=== PATIENT | male | born 1955 ===

== ENCOUNTER 2016-10-20 03:35 | Inpatient (IN) | payer MEDICARE, OTHER ==
--- NOTE | ~2016-10-20 | CT4 ---
[facility] A Service of [facility] RADIOLOGY TEXT RESULTS PATIENT: DIANNE ROMERO LOCATION: [facility] : 54 UNIT #: [id number] AGE: [address]: BENJIE HOGAN APRN SEX: M ORDER DR: [id number] [address] [address] [id number] P MR#: [id number] Acc #: [id number] NAME: DIANNE ROMERO : 1955 SEX: M STUDY DATE/TIME: 10/20/2016 4:30 UNIT: [facility] ROOM: STUDY DESCRIPTION: CT Abd and Pelv Wo Cont Attending Physician: Benjie Hogan Aprn Ordering Physician: Benjie Hogan Aprn MEDICAL IMAGING REPORT This report is preliminary unless electronic signature is present EXAM CT abdomen and pelvis INDICATIONS Abdominal pain. Altered mental status. Back pain/flank pain. TECHNIQUE CT of the abdomen and pelvis without contrast. Coronal and sagittal reconstructions were obtained. This CT exam was performed with one or more of the following radiation dose reduction techniques: automatic exposure control, adjustment of mA and/or kV according to patient size, and iterative reconstruction. COMPARISON None available. FINDINGS ABDOMEN: No urinary calculi. No hydronephrosis. Noncontrast evaluation of the solid abdominal organs are within normal limits. Gallbladder is not distended. The bowel is not dilated. The appendix is normal. There are some colonic diverticula. No diverticulitis. The abdominal aorta is normal in caliber. PELVIS: No pelvic mass. The bladder is unremarkable. No enlarged pelvic or inguinal lymph nodes. No acute osseous abnormalities. IMPRESSION No acute findings in the abdomen or pelvis. [facility] A Service of [facility] RADIOLOGY TEXT RESULTS PATIENT: DIANNE ROMERO LOCATION: [facility] : 54 UNIT #: [id number] AGE: [address]: BENJIE HOGAN APRN SEX: M ORDER DR: Dictated by... Jadon Tyson M.D. THIS IS AN ELECTRONICALLY VERIFIED REPORT Jadon Tyson M.D. at 10/20/2016 5:18 AM Nohemi TD: 10/20/2016 05:03 JOB #: [id number] MEDICAL IMAGING REPORT Page 1 of 1 COPY
--- NOTE | ~2016-10-20 | CR72 ---
[facility] A Service of [facility] RADIOLOGY TEXT RESULTS PATIENT: DIANNE ROMERO LOCATION: [facility] : 53 UNIT #: [id number] AGE: [address]: Katherine Negrete MD SEX: M ORDER DR: [id number] [facility] [address] [facility]. [place], [place] [address] [id number] I MR#: [id number] Acc #: [id number] NAME: DIANNE ROMERO : 1955 SEX: M STUDY DATE/TIME: 10/20/2016 9:32 UNIT: [facility] ROOM: 45912 STUDY DESCRIPTION: CR Chest Single View Portable Attending Physician: Katherine Negrete M.D. Ordering Physician: Benjie Hogan Aprn Primary Care Physician: Primary Care Physician No MEDICAL IMAGING REPORT This report is preliminary unless electronic signature is present EXAM Portable chest HISTORY Check endotracheal tube and central line. COMPARISON 10/20/2016 earlier in the day. TECHNIQUE Single AP view of the chest was obtained. FINDINGS A right jugular line and endotracheal tube both appear in good position. Consolidation is seen in the right upper lung field and there is also increased infiltrate at the left base. Some of this may be due to a shallower inspiratory effort since the previous examination. The possibility of new infiltrates since the previous examination should be considered. This location would be consistent with aspiration. IMPRESSION Tubes and supporting devices are in satisfactory position. New infiltrates are seen right upper lung field and left lung base. Possible aspiration. STAT * RESULT Dictated by... Carlos Trujillo M.D. THIS IS AN ELECTRONICALLY VERIFIED REPORT Carlos Trujillo M.D. at 10/20/2016 4:08 PM ANASTASIIAF/janene [facility] A Service of [facility] RADIOLOGY TEXT RESULTS PATIENT: DIANNE ROMERO LOCATION: [facility] : 53 UNIT #: [id number] AGE: [address]: Katherine Negrete MD SEX: M ORDER DR: TD: 10/20/2016 09:57 JOB #: [id number] MEDICAL IMAGING REPORT Page 1 of 1 COPY
--- NOTE | ~2016-10-20 | OR ---
Unit #: [id number] #: [id number] Patient: DIANNE ROMERO [id number] [address] [address] [id number] I MR#: [id number] NAME: DIANNE ROMERO ROOM: 78483 Date of Procedure: 10/20/2016 Admission Date: 10/20/2016 Surgeon: Joan Chappell M.D. : 1955 Attending Physician: Katherine Negrete M.D. Primary Care Physician: Olga Primary Care Physician PROCEDURE OPERATIVE NOTE PREOPERATIVE DIAGNOSIS Respiratory failure and shock. POSTOPERATIVE DIAGNOSIS PROCEDURE PERFORMED Right internal jugular essential venous catheter placement with ultrasound guidance. PERFORMING PHYSICIAN Joan Chappell M.D. WASTE TREATMENT OPERATOR Ara, Nurse practitioner COMPLICATIONS None. INDICATIONS FOR PROCEDURE Shock. DESCRIPTION OF PROCEDURE An informed consent was waved as there was no family and the patient was in severe shock. The patient was prepped and positioned in a proper way. Then, his right neck was cleaned with chlorhexidine. Then with the ultrasound guidance a needle was inserted after applying the body drape. Blood flow as obtained with no problem and then a guidewire was inserted inside the needle and the needle was removed. Then a dilator was used to create the track for the catheter and then the catheter was inserted over the guide wire using Seldinger technique. The line was flushed appropriately and Biopatch and clean dressing were applied. The patient tolerated his procedure well with no immediate complication. Stat chest x-ray is pending, confirming placement. Unit #: [id number] #: [id number] Patient: DIANNE ROMERO Dictated by... Joan Chappell M.D. EA/serena TD: 10/20/2016 10:14 JOB #: [id number] PROCEDURE OPERATIVE NOTE Page 1 of 1 X JOAN BARROW MD PROCEDURE OPERATIVE NOTE
--- NOTE | ~2016-10-20 | DS ---
Unit #: [id number] #: [id number] Patient: DIANNE ROMERO [id number] [address] [address] [id number] I MR#: [id number] NAME: DIANNE ROMERO ROOM: 338 Age: 61 Sex: M Admission Date: 10/20/2016 : 1955 Discharge Date: 10/27/2016 Attending Physician: Rose Hyde M.D. Primary Care Physician: No Primary Care Physician DISCHARGE SUMMARY PRINCIPAL DIAGNOSES 1. Shock both septic and hypovolemic, now resolved. 2. Acute respiratory failure secondary to #3. 3. Right-sided aspiration pneumonia with Escherichia coli and Klebsiella pneumoniae. 4. Acute kidney injury secondary to acute tubular necrosis plus or minus nonsteroidal anti-inflammatory drugs, status post hemodialysis, which is currently resolving. 5. Emerado toxicity, status post hemodialysis. 6. Mild rhabdomyolysis. 7. Polysubstance overdose including amphetamines, opiates and tricyclic antidepressants. 8. Severe metabolic acidosis, now resolved. 9. Hypokalemia. 10. Moderate protein malnutrition. 11. Bipolar disorder. 12. Atypical chest pain. 13. Toxic metabolic encephalopathy with concerns for underlying memory loss. 14. Dilated ascending aorta. 15. Benign prostatic hypertrophy. CONSULTANTS Dr. Chappell, pulmonology and Dr. Hernandez, nephrology. PROCEDURES 1. 2-Dimensional echocardiogram on 10/20/2016 with ejection fraction of 55% to 60%. No valvular abnormalities noted. 2. Chest x-ray on 10/20/2016 with nodular densities in the right superior hilum. 3. CT of the head without contrast on 10/20/2016, which was normal. 4. CT scan of the abdomen and pelvis without contrast on 10/20/2016 with no acute findings. 5. Chest x-ray later on 10/20/2016 following right jugular line and there is new infiltrates in the right upper and lower lobes. 6. Bilateral renal ultrasound on 10/20/2016, which was normal. 7. CT of the chest without contrast on 10/21/2016, with dilatation to ascending aorta measuring 5 cm in dimension, extensive infiltrates in the right upper lobe and bilateral lower lobes noted. No pulmonary nodule. CLINICAL HISTORY AND HOSPITAL COURSE Mr. Romero is a 61-year-old male brought to the emergency department by some friends after he was found unresponsive at home. Patient in the ER Unit #: [id number] #: [id number] Patient: DIANNE ROMERO was complaining about abdominal pain and CT scan was done, which was negative. He received Narcan in the emergency department and became more responsive; however, he was found to be significantly hypotensive, became increasingly hypoxic and was subsequently intubated and admitted to the ICU. In regards to the patient's respiratory failure, Dr. Chappell was consulted. The patient is maintained on ventilatory support and chest x-ray revealed pneumonia that appeared to be aspiration in origin. He was placed on appropriate antibiotics. Sputum cultures ultimately grew E. coli and Klebsiella. Fortunately with supportive care, the patient's respiratory status improved and actually patient self extubated. Fortunately he did not require reintubation. His hypoxia is now completely resolved and with complete antibiotics as outlined below. All associated fever, leukocytosis and sepsis has resolved. As noted above, the patient was hypotensive, which was unresponsive to IV hydration. Upon presentation he did require pressor therapy for approximately 48 hours. I suspect his hypotension was both septic in origin and probably mediation induced due to the medications he took as well. This has resolved. Upon presentation, the patient was also found to have a significantly elevated creatinine of 8.5. He was also lithium toxic and required emergent hemodialysis under the supervision of Dr. Hernandez. Emerado has been discontinued and Emerado toxicity has resolved. Patient did require hemodialysis on several occasional but fortunately he has begun to have spontaneous resolution of his acute kidney injury. He is having significant diuresis and on the day of discharge creatinine is now down to 2.8 and dropping about 1.5 points daily. This can be followed up as an outpatient. Patient also had significant hypokalemia due to his diuresis and we will replace this as an outpatient. Patient's urine drug screen upon presentation was abnormal and I suspect given his mental status, this ultimately was the result of a polysubstance overdose. Patient denies this. Patient today is otherwise clinically stable. He is eating and up walking around with physical therapy. He is complaining about some atypical chest pain that has been present for three days, of which he has not complained prior to today. I am awaiting a stat EKG and Troponin. Chest x-ray was unremarkable. If these two are negative I think he can be discharged home. DISCHARGE CONDITION Stable. DISCHARGE STATUS Discharge to home. DISCHARGE MEDICATIONS 1. Ventolin inhaler one puff every 4 hours p.r.n. for shortness of breath. 2. Combivent nebulizer treatments, 3 mL every 6 hours p.r.n. for shortness of breath. 3. Flomax 0.4 mg at bedtime. 4. Remeron unknown dose, 1 tablet at bedtime. Unit #: [id number] #: [id number] Patient: DIANNE ROMERO 5. Norvasc 10 mg daily. 6. Omnicef 300 mg p.o. b.i.d. for another five days. 7. Tessalon Perles 200 mg p.o. t.i.d. p.r.n. for cough. 8. BuSpar 10 mg p.o. t.i.d. 9. Labetalol 100 mg 1/2 tablet b.i.d. 10. KCL 20 mEq 2 tablets p.o. daily for seven days. DISCHARGE INSTRUCTIONS 1. The patient was instructed to follow a regular diet. 2. He is to refrain from any tobacco or illicit drug use or alcohol use. 3. He can increase activity as tolerated. 4. No NSAIDs over the counter. FOLLOWUP Patient will have a followup BMP done in one week. He should followup in transition clinic in one week. As noted, I have stopped multiple medications on this patient including his lithium. This should be reinitiated, when renal function has normalized, by his primary psychiatrist. Time spent on discharge today 43 minutes. Dictated by... Rose Hyde M.D. TRUONG/serena TD: 10/31/2016 09:55 JOB #: [id number] DISCHARGE SUMMARY Page 1 of 1 X Rose Hyde MD DISCHARGE SUMMARY
--- NOTE | ~2016-10-20 | CT71 ---
[facility] A Service [facility] RADIOLOGY TEXT RESULTS PATIENT: DIANNE ROMERO LOCATION: [facility]20 : 53 UNIT #: [id number] AGE: [address]: Katherine Negrete MD SEX: M ORDER DR: [id number] [place] [id number] [facility]. [place], [place] [address] [id number] MR#: [id number] Acc #: [id number] NAME: DIANNE ROMERO : 1955 SEX: M STUDY DATE/TIME: 10/20/2016 4:25 UNIT: [facility] ROOM: STUDY DESCRIPTION: CT Head Wo Contrast Attending Physician: Benjie Hogan Aprn Ordering Physician: Benjie Hogan Aprn Primary Care Physician: Primary Care Physician No MEDICAL IMAGING REPORT This report is preliminary unless electronic signature is present EXAM CT head INDICATION Altered mental status. Overdose. Headache and dizziness. Generalized weakness. TECHNIQUE CT of the head without contrast. This CT examination was performed with one or more of the following radiation dose reduction techniques: automatic exposure control, adjustment of mA and/or kV according to patient size, and iterative reconstruction. COMPARISON CT head 01/03/2006. FINDINGS Axial noncontrast images were obtained from the skull base to the vertex. Ventricular size and configuration are normal. There is no evidence of acute infarct or hemorrhage. There are no extra-axial fluid collections. No mass lesion or mass effect is seen. There are no skull fractures. IMPRESSION Normal noncontrast head CT. Dictated by... Jadon Tyson M.D. THIS IS AN ELECTRONICALLY VERIFIED REPORT Jadon Tyson M.D. at 10/21/2016 12:48 AM EUGENE/arian [facility] A Service [facility] RADIOLOGY TEXT RESULTS PATIENT: DIANNE ROMERO LOCATION: [facility] C[facility]3-20 : 53 UNIT #: [id number] AGE: [address]: Katherine Negrete MD SEX: M ORDER DR: TD: 10/20/2016 05:56 JOB #: [id number] MEDICAL IMAGING REPORT Page 1 of 1 COPY
--- NOTE | ~2016-10-20 | OR ---
Unit #: [id number] #: [id number] Patient: DIANNE ROMERO [id number] [address] [address] [id number] I MR#: [id number] NAME: DIANNE ROMERO ROOM: 55460 Date of Procedure: 10/20/2016 Admission Date: 10/20/2016 Surgeon: Joan Chappell M.D. : 1955 Attending Physician: Katherine Negrete M.D. Primary Care Physician: Olga Primary Care Physician PROCEDURE OPERATIVE NOTE INDICATION FOR PROCEDURE Respiratory failure and shock. PROCEDURE PERFORMED Direct laryngoscope intubation. ANESTHESIA Etomidate 20 mg IV times 1, Vecuronium 10 mg IV times 1. COMPLICATIONS None. GEOTECHNICAL FIELD TECHNICIAN Arnaldo, Nurse practitioner. PROCEDURE The patient was prepped and positioned in the appropriate way. Then he was preoxygenated with nonrebreather, then Ambu bag. The patient was premedicated with Vecuronium and etomidate. Then with the laryngoscope MAC size 4 an ET tube size 8 was inserted past the vocal cords with no complication. A view grade 3 was obtained during the procedure. ET tube placement was confirmed with good bilateral breath sounds and good CO2 color change. STAT chest x-ray is pending, confirming placement. Dictated by... Joan Chappell M.D. EA/ace TD: 10/20/2016 10:07 JOB #: [id number] PROCEDURE OPERATIVE NOTE Page 1 of 1 X JOAN BARROW MD X PROCEDURE OPERATIVE NOTE
--- NOTE | ~2016-10-20 | CR72 ---
[facility] A Service of [facility] RADIOLOGY TEXT RESULTS PATIENT: DIANNE ROMERO LOCATION: [address] : 53 UNIT #: [id number] AGE: [address]: Katherine Negrete MD SEX: M ORDER DR: [id number] [facility] [address] [facility]. [place], [place] [address] [id number] I MR#: [id number] #: [id number] NAME: DIANNE ROMERO : 1955 SEX: M STUDY DATE/TIME: 10/20/2016 12:25 UNIT: [facility] ROOM: [facility] STUDY DESCRIPTION: CR Chest Single View Portable Attending Physician: Katherine Negrete M.D. Ordering Physician: Ed Shubham Coelho M.D. Primary Care Physician: No Primary Care Physician MEDICAL IMAGING REPORT This report is preliminary unless electronic signature is present EXAM Portable chest radiograph INDICATION Shiley placement today. FINDINGS Left internal jugular vein nontunneled dialysis catheter extends into the superior vena cava. No obvious pneumothorax is seen. Patient has a right internal jugular vein central venous line which extends into the superior vena cava. Endotracheal tube is present which terminates above the level of the power. Cardiomegaly is present. Patchy infiltrates are noted throughout the right lung probably not significantly changed when compared to the earlier study. There is also some left basilar atelectasis. Dictated by... Evelia Zepeda M.D. THIS IS AN ELECTRONICALLY VERIFIED REPORT Evelia Zepeda M.D. at 10/20/2016 4:55 PM AFF/aa TD: 10/20/2016 14:35 JOB #: [id number] MEDICAL IMAGING REPORT Page 1 of 1 COPY
--- NOTE | ~2016-10-20 | A ---
[facility] Nutrition Therapy DATE: 10/21/16 Patient: DIANNE ROMERO Physician: ISAMAR Address: [facility] Room/Bed: [address], Zip: [place] [address] Admit Date: 10/20/16 Date of : 53 Height: 5 10 Weight: 188 85.5 NUTRITIONAL ASSESSMENT: REASON: NPO STATUS IN ICU 61 yo male admitted after being found down, acute respiratory failure, sepsis, aspiration PNA PMH: CHF, HTN, abdominal aortic aneurysm, GERD, bipolar disorder Anthropometrics: Ht: 5'10" Adm wt: 84 kg BMI: 26.6 Labs: Cl- 97 Gluc 174 BUN 38 Creat 5.2 Ca++ 6.6 Alb 3.2 GFR 10.9 Meds: Levophed, fentanyl, sodium bicarbonate, D5%, protonix, versed, NaCl I/O & Bowel function: 4602/1596, last BM 10/20, NG to LWS (1000 mL output x 24 hrs) Skin Integrity: Scar to low back/ hip Edema: none noted Estimated Nutrition Needs: 4238-6058 kcals (25-30 kcals/kg) 84-109 grams protein (1.0-1.3 grams/kg) Diet: NPO status Assessment: Chart reviewed, events noted. 61 yo male admitted after being found down after OD with noted respiratory failure, sepsis, metabolic and respiratory acidosis, BACILIO and aspiration PNA. Pt is intubated and sedated in ICU. Pt received stat HD yesterday per RN report. PMH and nutritionally significant labs noted above. Pt has an NG to LWS at this time. No family in room to provide nutritional history. Please see recommendations below. Dx: Inadequate protein-energy intake RT clinical condition, ventilator dependence AEB NPO status. Intervention: 1. Enteral nutrition Monitoring, Evaluation and Goals: 1. Enteral nutrition; initiate once medically feasible, provide >80% goal volume x 24 hrs 2. Improve labs; electrolytes, BUN, creat, GFR 3. GI; promote regular GI function [facility] Nutrition Therapy DATE: 10/21/16 Patient: DIANNE ROMERO Physician: ISAMAR Address: [facility] Room/Bed: [address], Zip: [place] [address] Admit Date: 10/20/16 Date of : 53 Height: 5 10 Weight: 188 85.5 Recommendations: 1. Once medically feasible when the pt is hemodynamically stable, recommend initiating enteral nutrition with Jevity 1.5 @ 20 mL/hr. Increase by 10 mL q 6 hrs as tolerated to goal of 60 mL/hr. This would provide: 2160 kcals/ 92 grams protein/ 1094 mL free H20 2. If the pt presents with significant electrolytes abnormalities, consider using Nepro renal formula instead of Jevity 1.5. If ordered by MD, start Nepro @ 20 mL/hr and increase by 10 mL q 6 hrs as tolerated to goal of 50 mL/hr. This would provide: 2160 kcals/ 97 grams protein/ 876 mL free H20 3. If the pt is extubated, recommend ACADEMIC ADMINISTRATOR evaluation. Advance diet per ACADEMIC ADMINISTRATOR recommendations + heart healthy diet restriction. Pt is at moderate-severe nutritional risk. RD will follow hospital course per protocol. Respectfully, ALENA MCGARRY RD, LD Food and Nutritional Services [facility] cc: client file
--- NOTE | ~2016-10-20 | EKG ---
PATIENT: DIANNE ROMERO UNIT #: [id number] Ventricular Rate: 66 BPM Atrial Rate: 66 BPM P-R Interval: 190 ms QRS Duration: 92 ms Q-T Interval: 444 ms QTC Calculation(Bezet): 465 ms P Orient: 50 degrees Calculated R Orient: 13 degrees Calculated T Orient: 53 degrees Diagnosis Line: Normal sinus rhythm Diagnosis Line: Cannot rule out Anterior infarct , age Diagnosis Line: undetermined Diagnosis Line: Abnormal ECG Diagnosis Line: No previous ECGs available Diagnosis Line: Confirmed by DARINEL MUNOZ MD ([id number]) on Diagnosis Line: 10/21/2016 7:58:26 AM INTERPRETING MD: TAMMY GEORGE
--- NOTE | ~2016-10-20 | EKG ---
PATIENT: DIANNE ROMERO UNIT #: [id number] Ventricular Rate: 70 BPM Atrial Rate: 70 BPM P-R Interval: 174 ms QRS Duration: 90 ms Q-T Interval: 422 ms QTC Calculation(Bezet): 455 ms P [place]: 46 degrees Calculated R [place]: -31 degrees Calculated T [place]: 34 degrees Diagnosis Line: Sinus rhythm with Premature atrial complexes Diagnosis Line: Left axis deviation Diagnosis Line: Abnormal ECG Diagnosis Line: When compared with ECG of 20-OCT-2016 07:56, Diagnosis Line: Premature atrial complexes are now Present Diagnosis Line: Confirmed by DARINEL MUNOZ MD ([id number]) on Diagnosis Line: 10/28/2016 9:03:16 AM INTERPRETING MD: TAMMY GEORGE
--- NOTE | ~2016-10-20 | HP ---
Unit #: [id number] #: [id number] Patient: DIANNE ROMERO [id number] [address] [address] [id number] I MR#: [id number] NAME: DIANNE ROMERO ROOM: 52616 Age: 61 Sex: M Admission Date: 10/20/2016 : 1955 Attending Physician: Katherine Negrete M.D. Primary Care Physician: No Primary Care Physician HISTORY AND PHYSICAL CHIEF COMPLAINT Drug overdose and unresponsiveness. HISTORY OF PRESENT ILLNESS The patient is a 61 year old admitted because he was found down in a car by a friend. Patient currently intubated and sedated. No family is reachable. No phone number available. Also, ER sheet is not available for me right now. Most of the history is taken from nurses' sheets. According to the history, the patient was brought after he was found down in a car by a friend. Very limited history. The patient was complaining of abdominal pain, so CT of the abdomen was done, which is negative. Also, the patient received Narcan x2, and he became responsive. Also, the patient was hypotensive. Three liters of fluids given. Also, later, the patient went hypoxic and was intubated. Currently the patient is intubated. PAST MEDICAL HISTORY 1. History of congestive heart failure, ejection fraction unknown. Likely chronic diastolic heart failure. 2. Hypertension. 3. Abdominal aortic aneurysm. 4. GERD. 5. Bipolar. PAST SURGICAL HISTORY Shoulder and back surgery. ALLERGIES None. SOCIAL HISTORY Unobtainable because the patient is intubated and sedated. FAMILY HISTORY Unobtainable because the patient is intubated. REVIEW OF SYSTEMS Unobtainable because the patient is intubated. HOME MEDICATIONS Unavailable because the patient is intubated and no family available. PHYSICAL EXAMINATION GENERAL EXAMINATION: This is a 61 year old lying in the bed, intubated, Unit #: [id number] #: [id number] Patient: DIANNE ROMERO sedated. VITAL SIGNS: Temperature 97.9, pulse 68, respirations 34, blood pressure 57/32. HEENT: This is a 61 year old with dry mucosa. Pupils are equal and reactive to light and accommodation. NECK: Supple. HEART: S1, S2 heard. Regular rhythm. Tachycardic. RESPIRATORY: Lungs are clear to auscultation. Occasional rhonchi present. ABDOMEN: Soft, nontender. Bowel sounds are present. EXTREMITIES: No pedal edema. SKIN: No IV needle santos seen in his antecubital area. NEUROLOGIC: Currently the patient is intubated and sedated. DIAGNOSTIC STUDIES LAB DATA: Glucose 96. WBC 12.4, hemoglobin 12.2, platelets 256. Lactic acid 1.3. Sodium 133, potassium 4.2, creatinine 8.5, AST 53, ALT 38, alkaline phosphatase 60, total bilirubin 1.9, albumin 3.9. CK 1,411. ABG - pH 7.11, carbon dioxide 35, oxygen 85. Urinalysis shows trace leukocyte esterase, no bacteria. Urine drug screen positive for amphetamines, opiates and TCA. Acetaminophen level less than 10, salicylate less than 4. Procalcitonin 0.49. Troponin 0.06. IMAGING: CT of the abdomen and pelvis shows no acute findings. CT of the head normal. Chest x-ray shows nodular densities superior right hilar region. May represent pneumonia. CARDIOVASCULAR: EKG shows sinus rhythm. ASSESSMENT AND PLAN A 61 year old admitted because of unresponsiveness. 1. Acute hypoxic respiratory failure. Currently intubated and sedated. Monitor in ICU. 2. Septic shock versus hypovolemic shock with likely aspiration pneumonia. Patient was started on IV Zosyn. IV fluids, 3 liter bolus, have been given. Continue with the 4th liter. Lactic acid has been done. Blood cultures sent. Also hypotension could be secondary to drug overdose. 3. Acute kidney injury with severe metabolic acidosis with acute rhabdomyolysis. Patient was seen by Dr. Hernandez. He is going to do a STAT dialysis. 4. Aspiration pneumonia, likely. The patient was started on IV antibiotics as per pulmonary. 5. Acute rhabdomyolysis. Continue with IV fluids. 6. Bipolar, on lithium. I am going to do a STAT lithium level. Patient is going for dialysis now. 7. Could not reach family. No phone number. link trainer maintenance worker to help with finding family phone number. 8. The patient is critically ill. Trying to reach family. NOTE: Critical care time taken is 32 minutes. Dictated by Unit #: [id number] #: [id number] Patient: DIANNE ROMERO M.D. KJ/db TD: 10/20/2016 11:52 JOB #: [id number] HISTORY AND PHYSICAL Page 1 of 1 X Katherine Negrete MD HISTORY AND PHYSICAL
--- NOTE | ~2016-10-20 | EKG ---
PATIENT: DIANNE ROMERO UNIT #: [id number] Ventricular Rate: 71 BPM Atrial Rate: 71 BPM P-R Interval: 194 ms QRS Duration: 94 ms Q-T Interval: 450 ms QTC Calculation(Bezet): 489 ms P Ramsay: 42 degrees Calculated R Ramsay: 2 degrees Calculated T Ramsay: 46 degrees Diagnosis Line: Normal sinus rhythm Diagnosis Line: Prolonged QT Diagnosis Line: Abnormal ECG Diagnosis Line: When compared with ECG of 20-OCT-2016 03:53, Diagnosis Line: (unconfirmed) Diagnosis Line: No significant change was found Diagnosis Line: Confirmed by DARINEL MUNOZ MD ([id number]) on Diagnosis Line: 10/21/2016 7:58:55 AM INTERPRETING MD: TAMMY GEORGE
--- NOTE | ~2016-10-20 | CO ---
Unit #: [id number] #: [id number] Patient: DIANNE ROMERO [id number] [address] [address] [id number] I MR#: [id number] NAME: DIANNE ROMERO ROOM: 77095 Age: 61 Sex: M Admission Date: 10/20/2016 : 1955 Attending Physician: Katherine Negrete M.D. Primary Care Physician: No Primary Care Physician Consultation Date: 10/20/2016 CONSULTATION REPORT REASON FOR CONSULT ICU management. HISTORY OF PRESENT ILLNESS This is a 61-year-old male with past medical history significant for congestive heart failure, hypertension, GERD, bipolar disorder, AAA, who presented to the emergency room after he was found down in his car by a friend. The history is very limited as there is no family or friends at bedside and all information was obtained from the nurses and from the ER report. In the ER MD sheets, there is report of abdominal pain, dehydration, balance loss, and falling for one to two days. However, from the nursing report the patient was found down in his car with drug overdose of unclear medication. Currently, patient is hypoxic, unresponsive, hypotensive with systolic blood pressure in the 70s. His blood gas showing metabolic acidosis with no proper respiratory compensation. We are in the process of intubating and proceeding with central line placement. PAST MEDICAL HISTORY 1. Congestive heart failure. 2. Hypertension. 3. AAA. 4. GERD. 5. Bipolar disorder. PAST SURGICAL HISTORY Shoulder and back surgery. ALLERGIES No known drug allergies. SOCIAL HISTORY Unable to obtain from the patient. FAMILY HISTORY Unable to obtain. REVIEW OF SYSTEMS Unable to obtain. HOME MEDICATIONS Unable to obtain. PHYSICAL EXAMINATION Unit #: [id number] #: [id number] Patient: DIANNE ROMERO GENERAL: The patient is ill appearing. VITAL SIGNS: Blood pressure is 71/42, respiratory rate 12, O2 saturation 96% on nonrebreather. HEENT: Atraumatic, normocephalic. PERRLA. EOMI. NECK: Supple. No JVD. No lymphadenopathy. CHEST: Fine rhonchi at the bases. HEART: S1, S2. No murmur, gallops, or rubs. ABDOMEN: Soft, nontender. Bowel sounds are positive. No hepatosplenomegaly. EXTREMITIES: No edema or cyanosis. SKIN: No rashes. CENTRAL NERVOUS SYSTEM: Obtunded and lethargic. He is moving all extremities. He wakes up for painful stimuli but he is incoherent. DIAGNOSTIC STUDIES LABORATORY: AB.//11. Sodium 133, creatinine 8.5. White blood count 12.4, hemoglobin 12.2. ASSESSMENT 1. Acute hypoxic respiratory failure. 2. Severe anion gap metabolic acidosis. 3. Acute renal failure. 4. Rhabdomyolysis. 5. Drug overdose. 6. Pulmonary nodule. 7. Shock, likely septic. 8. Rule out aspiration pneumonia. 9. Hyponatremia. PLAN 1. The patient is very ill appearing and he needs to be intubated at this point. 2. IV fluid per sepsis guideline and then bicarbonate drip due to rhabdomyolysis. 3. Pressors to keep his systolic more than 95. 4. Broad-spectrum antibiotics pending culture. 5. CT chest at some point to evaluate for pulmonary nodule and rule out other etiology. 6. Obtain urine drug screen and alcohol level. We need also to calculate osmolar gap to rule out methanol or ethylene glycol toxicity. 7. Patient may need to have hemodialysis for both renal failure and drug overdose; however, will re-assess soon after hydration and lab followup. 8. Deep venous thrombosis and gastrointestinal prophylaxis. Critical care time spent on this patient was 45 minutes. Dictated by... Jaja Peters TD: 10/20/2016 09:21 Unit #: [id number] #: [id number] Patient: DIANNE ROMERO JOB #: [id number] CONSULTATION REPORT Page 1 of 1 X JOAN BARROW MD CONSULTATION REPORT
--- NOTE | ~2016-10-20 | US77 ---
[facility] A Service of [facility] & [facility] RADIOLOGY TEXT RESULTS PATIENT: DIANNE ROMERO LOCATION: [address] : [birth year] UNIT #: [id number] AGE: [address]: Katherine Negrete MD SEX: M ORDER DR: [id number] [facility] [address] [facility]. [place], [place] [address] [id number] I MR#: [id number] Acc #: [id number] NAME: DIANNE ROMERO : 1955 SEX: M STUDY DATE/TIME: 10/20/2016 19:30 UNIT: [facility] ROOM: [facility] STUDY DESCRIPTION: US Kidney Bilateral Complete Attending Physician: Katherine Negrete M.D. Ordering Physician: Ed Shubham Coelho M.D. Primary Care Physician: Primary Care Physician No MEDICAL IMAGING REPORT This report is preliminary unless electronic signature is present EXAM Bilateral renal ultrasound HISTORY Renal failure. Elevated creatinine. FINDINGS Ultrasound examination of both kidneys demonstrates no hydronephrosis. No renal mass. No focal renal atrophy or perinephric fluid collection. Normal renal parenchymal echotexture. Both kidneys measure 11.8 cm in length. Urinary bladder was not visualized. IMPRESSION Normal ultrasound examination of both kidneys. Dictated by... Paul Londono M.D. THIS IS AN ELECTRONICALLY VERIFIED REPORT Paul Londono M.D. at 10/21/2016 11:23 PM DFL/psc TD: 10/20/2016 22:52 JOB #: [id number] MEDICAL IMAGING REPORT Page 1 of 1 COPY
--- NOTE | ~2016-10-20 | CR63 ---
[facility] A Service of [facility] & [facility] RADIOLOGY TEXT RESULTS PATIENT: DIANNE ROMERO LOCATION: [facility] 338-01 : [birth year] UNIT #: [id number] AGE: [address]: Rose Hyde MD SEX: M ORDER DR: [id number] [facility] [address] [facility]. [place], [place] [address] [id number] I MR#: [id number] Acc #: [id number] NAME: DIANNE ROMERO : 1955 SEX: M STUDY DATE/TIME: 10/27/2016 9:10 UNIT: [address] ROOM: [facility] STUDY DESCRIPTION: CR Chest 2 View Attending Physician: Rose Hyde M.D. Ordering Physician: Angelika Chappell M.D. Primary Care Physician: Primary Care Physician No MEDICAL IMAGING REPORT This report is preliminary unless electronic signature is present EXAM PA and lateral chest INDICATIONS Shortness of breath, pneumonia and cough for 5 days. COMPARISON 10/20/2016 FINDINGS Mild interstitial pattern. Heart size stable. No airspace consolidation. Previously noted support lines and tubes have been removed. IMPRESSION Mild interstitial pattern. Dictated by... Ian Armstrong M.D. THIS IS AN ELECTRONICALLY VERIFIED REPORT Ian Armstrong M.D. at 10/27/2016 12:23 PM Jairo TD: 10/27/2016 09:56 JOB #: [id number] MEDICAL IMAGING REPORT Page 1 of 1 COPY
--- NOTE | ~2016-10-20 | OR ---
Unit #: [id number] #: [id number] Patient: DIANNE ROMERO [id number] [address] [address] [id number] I MR#: [id number] NAME: DIANNE ROMERO ROOM: [facility] Date of Procedure: 10/22/2016 Admission Date: 10/20/2016 Surgeon: Joan Chappell M.D. : 1955 Attending Physician: Rose Hyde M.D. Primary Care Physician: Olga Primary Care Physician PROCEDURE OPERATIVE NOTE PROCEDURE PERFORMED Right femoral hemodialysis catheter placement with ultrasound guidance. INDICATION FOR PROCEDURE Hemodialysis need. PREOPERATIVE DIAGNOSIS Respiratory failure and renal failure. COMPLICATIONS None. DESCRIPTION OF THE PROCEDURE An informed consent was obtained from the patient after explaining the benefit and risks of this procedure. The patient was prepped and positioned in the proper way and then his right groin was cleaned with chlorhexidine and then a body drape was applied and then, with the ultrasound guidance, a needle was inserted into the right femoral vein until blood flow was obtained and then a guidewire was inserted and the needle was removed. Then, a dilator was used to create a false tract for the catheter and then the catheter was inserted over the guidewire and the guidewire was removed. The catheter was sutured in place and flushed appropriately. A clean dressing was applied and no need for chest x-ray at this point. Dictated by... Joan Chappell M.D. EA/david TD: 10/23/2016 10:02 JOB #: [id number] Unit #: [id number] #: [id number] Patient: DIANNE ROMERO PROCEDURE OPERATIVE NOTE Page 1 of 1 X JOAN BARROW MD X PROCEDURE OPERATIVE NOTE
--- NOTE | ~2016-10-20 | CT57 ---
[facility] A Service of [facility] & [facility] RADIOLOGY TEXT RESULTS PATIENT: DIANNE ROMERO LOCATION: [address] : [birth year] UNIT #: [id number] AGE: [address]: Rose Hyde MD SEX: M ORDER DR: [id number] [facility] [address] [facility]. [place], [place] [address] [id number] I MR#: [id number] Acc #: [id number] NAME: DIANNE ROMERO : 1955 SEX: M STUDY DATE/TIME: 10/21/2016 21:20 [facility]: [facility] ROOM: [facility] STUDY DESCRIPTION: CT Chest Wo Cont Attending Physician: Rose Hyde M.D. Ordering Physician: Katherine Negrete M.D. Primary Care Physician: Primary Care Physician No MEDICAL IMAGING REPORT This report is preliminary unless electronic signature is present EXAM CT scan of the chest without contrast INDICATION Pulmonary nodule right upper lobe seen on chest x-ray done 10/20/2016. Patient is unable to hold breath. He is on a ventilator. He cannot raise his arms above his head. TECHNIQUE Axial 2 mm images were obtained through the chest without contrast. This CT examination was performed with one or more of the following radiation dose reduction techniques: automatic exposure control, adjustment of mA and/or kV according to patient size, and iterative reconstruction. FINDINGS There are central venous catheters present with their tips in the superior vena cava. There are actually 2 with one on the left and one on the right side. The ascending aorta is about 5 cm in maximum AP or transverse dimension. There is a calcified granuloma in the right lower lobe. There are patchy dense infiltrates in the right upper lobe posteriorly and laterally and throughout the right lower lobe and also the left lower lobe. There is some patchy infiltrate in the lingula and right middle lobe. No discrete nodule is visible. The visualized portions of the upper abdomen are normal. The bones are unremarkable. IMPRESSION 1. The ascending aorta is enlarged up to 5 cm in transverse or AP dimension. 2. Extensive infiltrates particularly in the right upper lobe and both lower lobes with patchy infiltrates in the lingula and middle lobes. The presumed pneumonia appears denser on the athletic scout film today than it did on the chest x-ray yesterday. 3. No pulmonary nodule is visible but they could be obscured by the dense STS. [facility] A Service of [facility] & [facility] RADIOLOGY TEXT RESULTS PATIENT: DIANNE ROMERO LOCATION: [place] [address]- : [birth year] UNIT #: [id number] AGE: [address]: Rose Hyde MD SEX: M ORDER DR: infiltrates. Dictated by... Marky Green M.D. THIS IS AN ELECTRONICALLY VERIFIED REPORT Marky Green M.D. at 10/22/2016 8:21 PM SUBHA/arian TD: 10/22/2016 13:06 JOB #: [id number] MEDICAL IMAGING REPORT Page 1 of 1 COPY
--- NOTE | ~2016-10-20 | CR72 ---
[facility] A Service of [facility] & [facility] RADIOLOGY TEXT RESULTS PATIENT: DIANNE ROMERO LOCATION: [facility] CICCU3-20 : 53 UNIT #: [id number] AGE: [address]: Katherine Negrete MD SEX: M ORDER DR: [id number] [facility] [address] [facility]. [place], [place] [address] [id number] E MR#: [id number] Acc #: [id number] NAME: DIANNE ROMERO : 1955 SEX: M STUDY DATE/TIME: 10/20/2016 4:04 UNIT: [facility] ROOM: STUDY DESCRIPTION: CR Chest Single View Portable Attending Physician: Benjie Hogan Aprn Ordering Physician: Benjie Hogan Aprn Primary Care Physician: Primary Care Physician No MEDICAL IMAGING REPORT This report is preliminary unless electronic signature is present EXAM Single view chest INDICATION Wheezing. Shortness of air. FINDINGS Single portable AP view of the chest compared to 01/09/2009. Heart mediastinal contours are normal. There is a nodular density in the right upper lobe. This may represent an acute pneumonia. Followup radiographs are recommended to document resolution and exclude a pulmonary nodule. IMPRESSION Nodular densities in the superior right hilar region. Recommend followup radiographs to further evaluate. This may represent a pneumonia, however, pulmonary nodules are in the differential consideration. Dictated by... Jadon Tyson M.D. THIS IS AN ELECTRONICALLY VERIFIED REPORT Jadon Tyson M.D. at 10/21/2016 12:48 AM EUGENE/dulce TD: 10/20/2016 04:48 JOB #: [id number] MEDICAL IMAGING REPORT Page 1 of 1 COPY
--- NOTE | ~2016-10-20 | CO ---
Unit #: [id number] #: [id number] Patient: DIANNE ROMERO [id number] [address] [address] [id number] I MR#: [id number] NAME: DIANNE ROMERO ROOM: 82709 Age: 61 Sex: M Admission Date: 10/20/2016 : 1955 Attending Physician: Katherine Negrete M.D. Primary Care Physician: No Primary Care Physician Consultation Date: 10/20/2016 CONSULTATION REPORT REASON FOR CONSULTATION Renal failure. HISTORY Thank you very much for asking us to see this patient in consultation. Mr. Romero is a 61-year-old male who apparently was found down in the car by a friend and brought to the emergency room early this morning. The patient was noted to be hypotensive, had blood work done and showed a BUN and creatinine of 80 and 8.5. Because of this I was asked to see the patient. The patient also was noted to have mild increased CPK of 1411. He is unresponsive, intubated, no family members around and I do note even have a number to call anyone, so this is taken from just the best piecemeal that I can get. PAST MEDICAL HISTORY History of congestive heart failure, history if hypertension, history of gastroesophageal reflux disease, history of bipolar disorder, history of abdominal aortic aneurysm. MEDICATIONS His medicines according to a piece of paper from a [facility] discharge showed that he was diclofenac 50 mg a day; HCTZ 25 mg a day; labetalol 100 mg twice a day; Flomax 0.4 mg a day; Pravachol 40 mg a day; Norvasc 5 mg a day; Prilosec a day; BuSpar daily; lithium 450 mg twice a day; Neurontin 600 mg t.i.d.; Remeron daily; Lasix 20 mg a day. ALLERGIES Unknown. SOCIAL HISTORY Unknown. FAMILY HISTORY Unknown. REVIEW OF SYSTEMS Unknown. PHYSICAL EXAMINATION GENERAL: Again he has decreased response, intubated. He is on Levophed now and IV fluids consisting of bicarbonate 150 mL an hour and received about 3 L of normal saline bolus. VITAL SIGNS: His temperature is 97.9, pulse 68 to 78, blood pressure 57 to 111/30s to 60s. Currently his systolic blood pressure is around 100. Unit #: [id number] #: [id number] Patient: DIANNE ROMERO HEENT: His pupils are equal, round and reactive to light. He is orally intubated. NECK: Supple. No adenopathy. CARDIAC: He is without a rub. No S3 or S4. LUNGS: His lungs have a few bilateral rhonchi. ABDOMEN: Bowel sounds positive. Nontender, soft. EXTREMITIES: He has no lower extremity swelling. His pulses are intact in upper and lower extremities. SKIN: No acute rashes. NEUROLOGIC: Again decreased response. : Melara catheter is in place. Does have about 200 mL of urine in there currently. DIAGNOSTIC STUDIES LABORATORY DATA: UA shows specific gravity of 1.021, negative protein, 0-2 rbc's, 2-5 WBC, urine sodium 38. Hemoglobin 12.2, white count 12,400, platelets 256,000. Last ABG showed a pH 7.032, pCO2 of 38, pO2 of 225 on 100%. His sodium was 133, potassium 4.2, chloride 100, bicarb 14, anion gap calculated at 19. BUN of 80, creatinine 8.5 and glucose is 83. Calcium 7.8, CPK is 1411. Serum osmolarity is 313. Lactic acid is 1.3, negative aspirin, negative Tylenol. His drug screen showed positive amphetamines, positive opioids. Positive tricyclics. Negative cocaine. Negative for marijuana. Again negative Tylenol. Negative aspirin. IMAGING STUDIES: Chest x-ray showed infiltrates right and left side, upper lobe and left base. CT of the head was negative for acute pathology. Abdominal CT was negative for any acute pathology and no hydronephrosis. ASSESSMENT AND PLAN 1. Acute kidney injury: This is a gentleman with increased BUN and creatinine certainly multifactorial. It could be related to mild rhabdo, although I do not think that is the exact cause versus volume depletion, versus just hypotensive with decreased perfusion for possible sepsis, as well as he has been apparently on a nonsteroidal. All this combination causing his acute renal failure. I do not have a previous baseline creatinine on him at this time. Due to his severe acidosis, will plan on emergent hemodialysis today. He also apparently is on lithium, although apparently that was not noted until in the last hour. Will order a stat lithium level and suspect with his acute renal failure he is probably lithium toxic and potentially even lithium overdosed. Again will plan emergent hemodialysis anyway and certainly if his lithium level is elevated will have to follow serial lithium levels. He also has an elevated anion gap metabolic acidosis as we will mention below. 2. Acidosis: Patient with a combination of metabolic acidosis, as well as a respiratory acidosis and questionable possible mild metabolic alkalosis in looking at this numbers. He does have an increased anion gap at 19 and calculating his osmolar gap is 14, which is also elevated. Due to his severe acidosis and his osmolar gap, I will check a stat ethylene glycol level and methanol level as well, but again will start him on hemodialysis and if his ethylene glycol level is elevated, will consider medical management as well. For now check levels and start dialysis and will continue bicarb drip and will continue to follow. 3. Respiratory failure, pneumonia versus other. Unit #: [id number] #: [id number] Patient: DIANNE ROMERO 4. Bipolar disorder: Again check lithium level. 5. Possible sepsis. Thank you very much. Dictated by.Aman Hernandez M.D. EVA/serena TD: 10/20/2016 12:12 JOB #: [id number] CONSULTATION REPORT Page 1 of 1 X April Hernandez MD X CONSULTATION REPORT
--- NOTE | ~2016-10-20 | FU ---
[facility] Nutrition Therapy DATE: 10/25/16 Patient: DIANNE ROMERO Physician: ISAMAR Address: [address] [place] [address] ROAD Room/Bed: [address] [place] [address], Zip: [place] [address] Admit Date: 10/20/16 Date of : 53 Height: 5 10 Weight: 206 93.8 NUTRITION MONITORING/FOLLOW-UP: Reason: Follow up Anthropometrics: Wt: 86 kg (trending up since admission) Labs: K+ 3.3 Cl- 99 BUN 28 Creat 5.0 Ca++ 8.0 Alb 2.4 Meds: NaCl I&O's: 1260/1903, last BM 10/24 Skin: No changes noted Edema: none noted Diet: Regular Assessment: Chart reviewed, events noted. Since RD last saw the pt, he has been extubated and transfered to tele floor. Pt has been ordered a regular diet with thin liquids per [employer] evaluation. RD spoke with the pt at bedside. Per information obtained at rounds yesterday, the pt was consuming ~50% of meals. Pt reports having a poor appetite stating "Food just does not sound good". Pt denied having any n/v or abdominal pain. Pt unable to report exact amount of intake of meals, and would only reply "A little bit". RD stressed the importance of adequate nutritional intake, and the pt is agreeable to Ensure BID for supplemental nutrition. RD will order. Dx: Inadequate protein-energy intake RT ventilator dependence AEB NPO status- NO LONGER RELEVANT New Dx: Predicted suboptimal nutrient intake RT decreased appetite, clinical condition AEB pt reported poor appetite and intake. Intervention: 1. Heart healthy diet 2. Ensure BID Monitoring, Evaluation and Goals: 1. Enteral nutrition- NO LONGER RELEVANT (ADVANCED TO PO DIET) 2. Improve labs; glucose, electrolytes, BUN, creat- IMPROVED/ IN PROGRESS 3. GI; promote regular GI function- MET/ IN PROGRESS [facility] Nutrition Therapy DATE: 10/25/16 Patient: DIANNE ROMERO Physician: ISAMAR Address: [address] [place] [address] ROAD Room/Bed: [address] [place] [address], Zip: [place] [address] Admit Date: 10/20/16 Date of : 53 Height: 5 10 Weight: 206 93.8 NEW GOALS (IN ADDITION TO ABOVE): 1. Oral intake; tolerate >50-75% of meals and supplements Recommendations: 1. Add a heart healthy diet restriction d/t the pt's PMH. 2. Ensure BID for supplemental nutrition. 3. Appreciate staff encouraging adequate nutritional intake as needed. Status: Pt is at mild nutritional risk. RD will follow hospital course per protocol. Respectfully, ALENA MCGARRY RD, LD [facility] cc: client file
[2016-10-20 04:35] LABS: POC - CREATININE 5.04 mg/dL (0.64-1.27)
[2016-10-20 04:35] LABS: POC - CREATININE 5.55 mg/dL (0.64-1.27)
[2016-10-20 05:13] LABS: BASOPHIL# 0.1 X10e3 (0-0.3); BASOPHIL% 0.5 % (0-2.5); DIFF IND NO; EOSINOPHIL# 0.2 X10e3 (0-0.7); EOSINOPHIL% 1.9 % (0.0-7.0); HEMATOCRIT 39.2 % (38.0-50.0); HEMOGLOBIN 12.2 gm/dL (13.0-16.0); LYMPHOCYTE# 0.7 X10e3 (1.0-3.5); LYMPHOCYTE% 5.5 % (17.0-45.0); MEAN CELL VOLUME 92.7 FL (83-96); MEAN CORPUSCULAR HEMOGLOBIN 28.9 PG (28-34); MEAN CORPUSCULAR HGB CONC 31.2 g/dL (30-36); MEAN PLATELET VOLUME 7.5 FL (6.5-11.5); MONOCYTE# 1.1 X10e3 (0-1.0); MONOCYTE% 8.9 % (3.0-12.0); NEUTROPHIL# 10.4 X10e3 (1.5-7.1); NEUTROPHIL% 83.2 % (40-75); PLATELET COUNT 256 X10e3 (140-420); RED BLOOD COUNT 4.23 X10e (3.90-5.60); RED CELL DISTRIBUTION WIDTH 14.5 % (11.0-15.5); WHITE BLOOD COUNT 12.4 X10e3 (4.0-10.5)
[2016-10-20 05:14] LABS: POC - CKMB 17.4 ng/mL (0.0-7.9); POC - TROPONIN <0.05 ng/mL (<=0.05)
[2016-10-20 05:57] LABS: ALBUMIN SERUM 3.9 g/dL (3.5-5.0); BILIRUBIN, DIRECT 0.2 mg/dL (0.0-0.2); BILIRUBIN,INDIRECT 1.7 mg/dL (0.0-0.9); BILIRUBIN,TOTAL 1.9 mg/dL (0.2-2.0); BUN/CREATININE RATIO 9.41; CALCIUM SERUM 7.8 mg/dL (8.4-10.2); CREATININE SERUM 8.5 mg/dL (0.6-1.4); POTASSIUM 4.2 mmol/L (3.5-5.1); PROTEIN TOTAL SERUM 7.1 g/dL (6.0-8.3)
[2016-10-20] MEDS ORDERED: VOLTAREN50 MG PO (06:41)
[2016-10-20] MEDS ORDERED: HYDROCHLOROTHIA25 MG PO ×2 (06:42→13:40)
[2016-10-20] MEDS ORDERED: NORMODYNE100 MG PO (06:42)
[2016-10-20] MEDS ORDERED: FLOMAX0.4 M1 PO (06:43)
[2016-10-20] MEDS ORDERED: NORVASC10 MG PO (06:43)
[2016-10-20] MEDS ORDERED: PRINIVIL40 MG PO (06:43)
[2016-10-20] MEDS ORDERED: PRILOSEC PO (06:44)
[2016-10-20] MEDS ORDERED: IMDUR-ER30 M3 PO (06:44)
[2016-10-20] MEDS ORDERED: BUSPIRONE HCL10 MG PO ×2 (06:44→13:37)
[2016-10-20] MEDS ORDERED: ESKALITH-CR450 MG PO (06:45)
[2016-10-20] MEDS ORDERED: NEURONTIN600 MG PO (06:45)
[2016-10-20] MEDS ORDERED: COMBIVENT U/D3 M2 INH (06:46)
[2016-10-20] MEDS ORDERED: REMERON30 M1 PO (06:46)
[2016-10-20] MEDS ORDERED: CLONIDINE HCL0.1 MG PO (06:47)
[2016-10-20] MEDS ORDERED: LASIX20 MG PO (06:47)
[2016-10-20] MEDS ORDERED: BENTYL20 MG PO (06:48)
[2016-10-20] MEDS ORDERED: PHENERGAN25 MG PO (06:48)
[2016-10-20] MEDS ORDERED: ALBUTEROL17 GM INH (06:49)
[2016-10-20 08:23] LABS: ARTERIAL BLD GAS O2 SATURATION 92.3 % (90.0-100.0); ARTERIAL BLOOD GAS PCO2 34.6 mmHg (35.0-45.0); ARTERIAL BLOOD GAS PO2 85.9 mmHg (80.0-100)
[2016-10-20 08:26] LABS: ARTERIAL BLOOD GAS ALLEN TEST NORMAL; ARTERIAL BLOOD GAS ART SITE RIGHT RADIAL; ARTERIAL BLOOD GAS DELIVERY VENTI; ARTERIAL DRAW? YES
[2016-10-20 08:44] LABS: URINE APPEARANCE CLOUDY; URINE BILIRUBIN NEG (NEG); URINE BLOOD NEG (NEG); URINE COLOR DK YELLOW; URINE GLUCOSE NEG (NEG); URINE KETONE NEG (NEG); URINE LEUKOCYTE ESTERASE TRACE (NEG); URINE NITRATE NEG (NEG); URINE PROTEIN NEG (NEG); URINE SPECIFIC GRAVITY 1.021 (1.003-1.035); URINE UROBILINOGEN 0.2 MG/DL (NEG)
[2016-10-20 08:46] LABS: URBCS1 AUWI 0-2 /[HPF] (0-2); URINE BACTERIA AUWI NEG (NEGATIVE); URINE SQUAMOUS EPITHELIAL CELL OCC /[HPF]
[2016-10-20 09:01] LABS: INR 0.9; PARTIAL THROMBOPLASTIN TIME 24.7 SECONDS (23.5-31.3); PROTHROMBIN TIME (PATIENT) 10.3 SECONDS (10.0-11.7)
[2016-10-20 09:05] LABS: SALICYLATE <4.0 mg/dL
[2016-10-20 09:07] LABS: ACETAMINOPHEN <10 ug/mL
[2016-10-20 09:08] LABS: CULTURE INDICATED? NO
[2016-10-20 09:09] LABS: URINE MUCUS PRESENT
[2016-10-20 09:14] LABS: URINE SOURCE CATH
[2016-10-20 09:16] LABS: CREATININE,RANDOM URINE 244 mg/dL; SODIUM URINE RANDOM 38 mmol/L
[2016-10-20 09:54] LABS: AMPHETAMINE POS (NEG); BARBITURATES NEG (NEG); BENZODIAZEPINES NEG (NEG); COCAINE NEG (NEG); MARIJUANA NEG (NEG); OPIATES POS (NEG); TRICYCLIC ANTIDEPRESSANTS POS (NEG); U METHADONE NEG (NEG)
[2016-10-20 10:08] LABS: ARTERIAL BLD GAS O2 SATURATION 97.4 % (90.0-100.0); ARTERIAL BLOOD GAS CARBOXY HB 0.6 %sat (0.0-9.0); ARTERIAL BLOOD GAS HCO3 10.3 mmol/L; ARTERIAL BLOOD GAS MET HB 1.2 %sat (0.0-2.0); ARTERIAL BLOOD GAS PCO2 38.7 mmHg (35.0-45.0)
[2016-10-20 10:10] LABS: ARTERIAL BLOOD GAS pH 7.032 (7.350-7.450)
[2016-10-20 10:11] LABS: ARTERIAL BLOOD GAS ALLEN TEST NORMAL; ARTERIAL BLOOD GAS ART SITE RIGHT RADIAL; ARTERIAL BLOOD GAS VENT MODE A/C; ARTERIAL DRAW? YES
[2016-10-20 10:12] LABS: PROCALCITONIN 0.49 NG/ML
[2016-10-20] MEDS ORDERED: LABETALOL HCL100 MG PO (13:29)
[2016-10-20] MEDS ORDERED: LODINE400 M1 PO (13:31)
[2016-10-20] MEDS ORDERED: FLEXERIL10 MG PO (13:32)
[2016-10-20] MEDS ORDERED: ZESTRIL40 MG PO (13:33)
[2016-10-20] MEDS ORDERED: MIRTAZAPINE30 MG PO (13:34)
[2016-10-20] MEDS ORDERED: AMLODIPINE BESY10 MG PO (13:34)
[2016-10-20] MEDS ORDERED: IMDUR-ER30 M1 PO (13:35)
[2016-10-20] MEDS ORDERED: LITHIUM CARBON300 M1 PO (13:36)
[2016-10-20] MEDS ORDERED: BENZONATATE200 M1 PO (13:37)
[2016-10-20] MEDS ORDERED: OMEPRAZOLE20 M2 PO (13:38)
[2016-10-20] MEDS ORDERED: GABAPENTIN600 MG PO (13:40)
[2016-10-20 21:27] LABS: ARTERIAL BLD GAS O2 SATURATION 69.3 % (90.0-100.0); ARTERIAL BLOOD GAS HCO3 26.1 mmol/L; ARTERIAL BLOOD GAS MET HB 0.9 %sat (0.0-2.0); ARTERIAL BLOOD GAS PCO2 39.2 mmHg (35.0-45.0); ARTERIAL BLOOD GAS pH 7.432 (7.350-7.450)
[2016-10-20 21:29] LABS: ARTERIAL BLOOD GAS DELIVERY VENT; ARTERIAL BLOOD GAS PO2 34.8 mmHg (80.0-100); ARTERIAL BLOOD GAS VENT MODE AC; ARTERIAL DRAW? NO
[2016-10-20 22:32] LABS: BUN/CREATININE RATIO 7.82; CALCIUM SERUM 6.8 mg/dL (8.4-10.2); CREATININE SERUM 4.6 mg/dL (0.6-1.4); GLOM FILT RATE Estimated 12.7 mL/min (>60); POTASSIUM 3.1 mmol/L (3.5-5.1)
[2016-10-21 04:32] LABS: ARTERIAL BLD GAS O2 SATURATION 90.5 % (90.0-100.0); ARTERIAL BLOOD GAS CARBOXY HB 0.9 %sat (0.0-9.0); ARTERIAL BLOOD GAS HCO3 30.7 mmol/L; ARTERIAL BLOOD GAS MET HB 0.9 %sat (0.0-2.0); ARTERIAL BLOOD GAS pH 7.393 (7.350-7.450)
[2016-10-21 04:33] LABS: ARTERIAL BLOOD GAS PCO2 50.4 mmHg (35.0-45.0); ARTERIAL BLOOD GAS PO2 62.7 mmHg (80.0-100)
[2016-10-21 04:34] LABS: ARTERIAL BLOOD GAS ALLEN TEST NORMAL; ARTERIAL BLOOD GAS ART SITE LEFT RADIAL; ARTERIAL BLOOD GAS DELIVERY VENT; ARTERIAL BLOOD GAS VENT MODE AC; ARTERIAL DRAW? YES
[2016-10-21 05:32] LABS: BASOPHIL% 0.3 % (0-2.5); EOSINOPHIL# 0.2 X10e3 (0-0.7); EOSINOPHIL% 1.7 % (0.0-7.0); HEMATOCRIT 30.3 % (38.0-50.0); LYMPHOCYTE% 8.8 % (17.0-45.0); MEAN CELL VOLUME 90.3 FL (83-96); MEAN CORPUSCULAR HEMOGLOBIN 29.2 PG (28-34); MEAN CORPUSCULAR HGB CONC 32.3 g/dL (30-36); MEAN PLATELET VOLUME 7.6 FL (6.5-11.5); MONOCYTE# 1.5 X10e3 (0-1.0); MONOCYTE% 12.5 % (3.0-12.0); NEUTROPHIL% 76.7 % (40-75); PLATELET COUNT 171 X10e3 (140-420); RED BLOOD COUNT 3.36 X10e (3.90-5.60); RED CELL DISTRIBUTION WIDTH 14.1 % (11.0-15.5); WHITE BLOOD COUNT 11.7 X10e3 (4.0-10.5)
[2016-10-21 05:36] LABS: HEMOGLOBIN 9.8 gm/dL (13.0-16.0)
[2016-10-21 05:37] LABS: DIFF IND NO
[2016-10-21 06:00] LABS: ALBUMIN SERUM 3.2 g/dL (3.5-5.0); BILIRUBIN,TOTAL 0.9 mg/dL (0.2-2.0); BUN/CREATININE RATIO 7.3; CALCIUM SERUM 6.6 mg/dL (8.4-10.2); CREATININE SERUM 5.2 mg/dL (0.6-1.4); GLOM FILT RATE Estimated 10.9 mL/min (>60); MAGNESIUM 1.9 mg/dL (1.6-3.0); PHOSPHOROUS 3.8 mg/dL (2.5-4.6); POTASSIUM 3.7 mmol/L (3.5-5.1); PROTEIN TOTAL SERUM 5.9 g/dL (6.0-8.3)
[2016-10-21 15:55] LABS: BUN/CREATININE RATIO 7.09; CALCIUM SERUM 6.7 mg/dL (8.4-10.2); CREATININE SERUM 6.2 mg/dL (0.6-1.4); GLOM FILT RATE Estimated 8.8 mL/min (>60); POTASSIUM 3.5 mmol/L (3.5-5.1)
[2016-10-22 05:17] LABS: BASOPHIL% 0.4 % (0-2.5); EOSINOPHIL# 0.2 X10e3 (0-0.7); EOSINOPHIL% 2.1 % (0.0-7.0); HEMATOCRIT 29.8 % (38.0-50.0); HEMOGLOBIN 9.7 gm/dL (13.0-16.0); LYMPHOCYTE% 9.5 % (17.0-45.0); MEAN CELL VOLUME 90.1 FL (83-96); MEAN CORPUSCULAR HEMOGLOBIN 29.3 PG (28-34); MEAN CORPUSCULAR HGB CONC 32.6 g/dL (30-36); MEAN PLATELET VOLUME 7.6 FL (6.5-11.5); MONOCYTE# 1.3 X10e3 (0-1.0); MONOCYTE% 11.7 % (3.0-12.0); NEUTROPHIL# 8.3 X10e3 (1.5-7.1); NEUTROPHIL% 76.3 % (40-75); PLATELET COUNT 144 X10e3 (140-420); RED CELL DISTRIBUTION WIDTH 14.5 % (11.0-15.5); WHITE BLOOD COUNT 10.9 X10e3 (4.0-10.5)
[2016-10-22 05:36] LABS: DIFF IND NO
[2016-10-22 06:16] LABS: ALBUMIN SERUM 2.7 g/dL (3.5-5.0); BILIRUBIN,TOTAL 1.2 mg/dL (0.2-2.0); BUN/CREATININE RATIO 6.57; CALCIUM SERUM 6.6 mg/dL (8.4-10.2); CREATININE SERUM 7.3 mg/dL (0.6-1.4); GLOM FILT RATE Estimated 7.3 mL/min (>60); MAGNESIUM 1.9 mg/dL (1.6-3.0); PHOSPHOROUS 5.1 mg/dL (2.5-4.6); POTASSIUM 3.4 mmol/L (3.5-5.1); PROTEIN TOTAL SERUM 5.5 g/dL (6.0-8.3)
[2016-10-23 05:37] LABS: BASOPHIL% 0.2 % (0-2.5); EOSINOPHIL# 0.3 X10e3 (0-0.7); EOSINOPHIL% 3.5 % (0.0-7.0); HEMATOCRIT 30.7 % (38.0-50.0); HEMOGLOBIN 10.2 gm/dL (13.0-16.0); LYMPHOCYTE# 1.2 X10e3 (1.0-3.5); LYMPHOCYTE% 13.9 % (17.0-45.0); MEAN CELL VOLUME 89.4 FL (83-96); MEAN CORPUSCULAR HEMOGLOBIN 29.6 PG (28-34); MEAN CORPUSCULAR HGB CONC 33.1 g/dL (30-36); MEAN PLATELET VOLUME 7.5 FL (6.5-11.5); MONOCYTE# 1.2 X10e3 (0-1.0); MONOCYTE% 14.2 % (3.0-12.0); NEUTROPHIL# 5.8 X10e3 (1.5-7.1); NEUTROPHIL% 68.2 % (40-75); PLATELET COUNT 144 X10e3 (140-420); RED BLOOD COUNT 3.43 X10e (3.90-5.60); RED CELL DISTRIBUTION WIDTH 14.4 % (11.0-15.5); WHITE BLOOD COUNT 8.5 X10e3 (4.0-10.5)
[2016-10-23 05:38] LABS: DIFF IND NO
[2016-10-23 06:44] LABS: BUN/CREATININE RATIO 5.19; CALCIUM SERUM 7.4 mg/dL (8.4-10.2); GLOM FILT RATE Estimated 10.9 mL/min (>60); POTASSIUM 3.9 mmol/L (3.5-5.1)
[2016-10-23 06:54] LABS: CREATININE SERUM 5.2 mg/dL (0.6-1.4)
[2016-10-24 05:25] LABS: BASOPHIL% 0.4 % (0-2.5); EOSINOPHIL# 0.3 X10e3 (0-0.7); EOSINOPHIL% 4.4 % (0.0-7.0); HEMATOCRIT 31.6 % (38.0-50.0); HEMOGLOBIN 10.5 gm/dL (13.0-16.0); LYMPHOCYTE# 1.2 X10e3 (1.0-3.5); LYMPHOCYTE% 17.9 % (17.0-45.0); MEAN CORPUSCULAR HEMOGLOBIN 29.6 PG (28-34); MEAN CORPUSCULAR HGB CONC 33.2 g/dL (30-36); MEAN PLATELET VOLUME 7.4 FL (6.5-11.5); MONOCYTE% 14.7 % (3.0-12.0); NEUTROPHIL# 4.1 X10e3 (1.5-7.1); NEUTROPHIL% 62.6 % (40-75); PLATELET COUNT 132 X10e3 (140-420); RED BLOOD COUNT 3.55 X10e (3.90-5.60); WHITE BLOOD COUNT 6.6 X10e3 (4.0-10.5)
[2016-10-24 05:41] LABS: DIFF IND NO
[2016-10-24 06:25] LABS: BUN/CREATININE RATIO 5.37; CALCIUM SERUM 7.5 mg/dL (8.4-10.2); CREATININE SERUM 6.7 mg/dL (0.6-1.4); GLOM FILT RATE Estimated 8.1 mL/min (>60); POTASSIUM 3.8 mmol/L (3.5-5.1)
[2016-10-25 05:55] LABS: BASOPHIL% 0.6 % (0-2.5); EOSINOPHIL# 0.3 X10e3 (0-0.7); EOSINOPHIL% 4.7 % (0.0-7.0); HEMATOCRIT 30.9 % (38.0-50.0); HEMOGLOBIN 10.1 gm/dL (13.0-16.0); LYMPHOCYTE# 1.3 X10e3 (1.0-3.5); LYMPHOCYTE% 19.2 % (17.0-45.0); MEAN CELL VOLUME 88.4 FL (83-96); MEAN CORPUSCULAR HEMOGLOBIN 28.8 PG (28-34); MEAN CORPUSCULAR HGB CONC 32.6 g/dL (30-36); MEAN PLATELET VOLUME 7.3 FL (6.5-11.5); MONOCYTE% 14.7 % (3.0-12.0); NEUTROPHIL# 4.1 X10e3 (1.5-7.1); NEUTROPHIL% 60.8 % (40-75); PLATELET COUNT 153 X10e3 (140-420); RED BLOOD COUNT 3.49 X10e (3.90-5.60); RED CELL DISTRIBUTION WIDTH 14.2 % (11.0-15.5); WHITE BLOOD COUNT 6.7 X10e3 (4.0-10.5)
[2016-10-25 05:57] LABS: DIFF IND NO
[2016-10-25 06:41] LABS: ALBUMIN SERUM 2.4 g/dL (3.5-5.0); BUN/CREATININE RATIO 5.6; GLOM FILT RATE Estimated 11.5 mL/min (>60); PHOSPHOROUS 3.6 mg/dL (2.5-4.6); POTASSIUM 3.3 mmol/L (3.5-5.1)
[2016-10-26 05:26] LABS: HEMATOCRIT 32.1 % (38.0-50.0); HEMOGLOBIN 10.7 gm/dL (13.0-16.0); MEAN CELL VOLUME 88.2 FL (83-96); MEAN CORPUSCULAR HEMOGLOBIN 29.3 PG (28-34); MEAN CORPUSCULAR HGB CONC 33.2 g/dL (30-36); MEAN PLATELET VOLUME 7.3 FL (6.5-11.5); RED BLOOD COUNT 3.65 X10e (3.90-5.60); RED CELL DISTRIBUTION WIDTH 14.1 % (11.0-15.5); WHITE BLOOD COUNT 7.7 X10e3 (4.0-10.5)
[2016-10-26 05:46] LABS: ALBUMIN SERUM 2.6 g/dL (3.5-5.0); BUN/CREATININE RATIO 6.51; CALCIUM SERUM 8.2 mg/dL (8.4-10.2); CREATININE SERUM 4.3 mg/dL (0.6-1.4); GLOM FILT RATE Estimated 13.8 mL/min (>60); PHOSPHOROUS 4.1 mg/dL (2.5-4.6); POTASSIUM 3.3 mmol/L (3.5-5.1)
[2016-10-27 06:38] LABS: BUN/CREATININE RATIO 9.64; CALCIUM SERUM 8.3 mg/dL (8.4-10.2); CREATININE SERUM 2.8 mg/dL (0.6-1.4); GLOM FILT RATE Estimated 23.1 mL/min (>60); POTASSIUM 3.1 mmol/L (3.5-5.1)
[2016-10-27] MEDS ORDERED: CEFDINIR300 M1 PO (15:40)
[2016-10-27] MEDS ORDERED: K-DUR20 ME1 PO (15:42)
== END 2016-10-27 17:11 | disposition home or self-care (01) | DRG 917 ==
LOC: CED 03:35 → CICCU3 06:35 → C3A PCU 06:35 → CEDOF 06:35 → CICCU3 07:09 → CED 07:09 → CEDOF 07:09 → CICCU3 12:25 → C3A PCU 10-24 22:06
PROVIDERS: Internal Medicine; Internal Medicine Nephrology; Nurse Practitioner Family
PROC: 5A1945Z Respiratory Ventilation, 24-96 Consecutive Hours (ICD-10-PCS; 2016-10-20)
PROC: 0BH18EZ Insertion of Endotracheal Airway into Trachea, Via Natural or Artificial Opening Endoscopic (ICD-10-PCS; 2016-10-20)
PROC: 05HM33Z Insertion of Infusion Device into Right Internal Jugular Vein, Percutaneous Approach (ICD-10-PCS; 2016-10-20)
PROC: B543ZZA Ultrasonography of Right Jugular Veins, Guidance (ICD-10-PCS; 2016-10-20)
PROC: B24BYZZ Ultrasonography of Heart with Aorta using Other Contrast (ICD-10-PCS; 2016-10-20)
PROC: 5A1D60Z (ICD-10-PCS; 2016-10-21)
PROC: 05H333Z Insertion of Infusion Device into Right Innominate Vein, Percutaneous Approach (ICD-10-PCS; principal; 2016-10-22)
PROC: B54MZZA Ultrasonography of Right Upper Extremity Veins, Guidance (ICD-10-PCS; 2016-10-22)
DX: T43.621A Poisoning by amphetamines, accidental (unintentional), initial encounter (principal); J96.01 Acute respiratory failure with hypoxia; N17.0 Acute kidney failure with tubular necrosis; R65.21 Severe sepsis with septic shock; J69.0 Pneumonitis due to inhalation of food and vomit; A41.9 Sepsis, unspecified organism; G92 Toxic encephalopathy; J15.5 Pneumonia due to Escherichia coli; J15.0 Pneumonia due to Klebsiella pneumoniae; I50.32 Chronic diastolic (congestive) heart failure; M62.82 Rhabdomyolysis; E87.4 Mixed disorder of acid-base balance; E87.1 Hypo-osmolality and hyponatremia; E44.0 Moderate protein-calorie malnutrition; I11.0 Hypertensive heart disease with heart failure; I71.4 Abdominal aortic aneurysm, without rupture; K21.9 Gastro-esophageal reflux disease without esophagitis; F31.9 Bipolar disorder, unspecified; R91.1 Solitary pulmonary nodule; E83.51 Hypocalcemia; E87.6 Hypokalemia; Z68.26 Body mass index [BMI] 26.0-26.9, adult; N40.0 Benign prostatic hyperplasia without lower urinary tract symptoms; T40.601A Poisoning by unspecified narcotics, accidental (unintentional), initial encounter; T43.011A Poisoning by tricyclic antidepressants, accidental (unintentional), initial encounter
CPT/HCPCS: 36415; 36600; 70450; 71010; 71020; 71250; 74176; 76770; 80048; 80053; 80069; 80076; 80178; 80307; 81003; 82274; 82308; 82550; 82553; 82565; 82570; 82693; 82803; 82947; 83605; 83735; 83930; 84100; 84300; 84484; 84600; 85025; 85027; 85610; 85730; 86706; 87040; 87070; 87077; 87086; 87186; 87205; 87340; 89190; 92526; 92610; 93005; 93306; 94002; 94640; 94660; 94760; 94761; 96361; 96374; 97110; 97116; 97162; 97166; 97530; 99285; C1750; C9113; G0480; G8978-GP; G8979-GP; G8987-GO; G8988-GO; G8989-GO; G8996-GN; G8997-GN; G8998-GN; J0610; J0696; J1265; J1451; J1644; J1650; J2250; J2310; J2543; J2997; J7060; P9047; Q4081